=== PATIENT | female | born 1990 | race Hispanic/Latino ===

== ENCOUNTER 2017-08-28 08:54 | Emergency (ER) | payer OTHER, SELFPAY ==
[2017-08-28 10:45] LABS: Absolute Lymphocytes (CBC) 1.4 K/uL (0.7-4.9); Absolute Monocytes 0.5 K/uL (0.1-1.3); Absolute Neutrophil 5.1 K/uL (1.8-8.0); Basophils % 0.5 % (0-1.3); Eosinophils % 4.5 % (0-4.4); Hematocrit 37.4 % (36.0-45.0); Lymphocytes % 18.9 % (15.3-44.8); MCH 30.1 pg (27.0-35.0); MCV 90.6 fL (80-100); Monocytes % 6.7 % (3.3-12.3); RBC Red Blood Cell Count 4.13 M/uL (3.86-4.86)
[2017-08-28 11:00] LABS: Bicarbonate 24 mEq/L (21-31); Glucose Level 79 mg/dL (65-120); Potassium 3.7 mEq/L (3.6-5.0); Sodium Level 134 mEq/L (135-145)
[2017-08-28 11:01] LABS: BUN Blood Urea Nitrogen 8 mg/dL (6-20); Glomerular Filtration Rate > 90 mL/min (=/>90)
--- NOTE | 2017-08-28 12:27 | EDPHYS ---
Physician Documentation [facility] Name: Jaimie Cochran Age: 27 yrs Sex: Female : 1990 Arrival Date: 08/28/2017 Time: 08:58 Bed 14 Private MD: ED Physician Chapo Black HPI: 08/28 10:26 This 27 yrs old Female presents to ER via Ambulatory with complaints of kb Abdominal Pain - Unk Wks Preg. 10:30 The patient presents to the emergency department with abdominal pain, of the left lower kb quadrant, that started yesterday. course: care: none, Leakage of Fluid: none appreciated, Ultrasound: the patient has not had an ultrasound, Risk/complications: no obvious risks or complications are appreciated. Previous pregnancies: in previous pregnancies patient has had. Associated signs and symptoms: Pertinent positives: abdominal pain, Pertinent negatives: chest pain, diarrhea, dysuria, fever, frequency, nausea, ruptured membranes, seizure, shortness of breath, vaginal bleeding, vaginal discharge, vomiting. The patient has not experienced similar symptoms in the past. The patient has not recently seen a physician. 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 - Social history:: Smoking status: Patient uses tobacco products, 4-5 cigarettes/ day. ROS: 10:25 Constitutional: Negative for fever, chills, and weight loss, ENT: Negative for injury, kb pain, and discharge, Neck: Negative for injury, pain, and swelling, Cardiovascular: Negative for chest pain, palpitations, and edema, Respiratory: Negative for shortness of breath, cough, wheezing, and pleuritic chest pain, Back: Negative for injury and pain, : Negative for injury, bleeding, discharge, and swelling, MS/Extremity: Negative for injury and deformity, Skin: Negative for injury, rash, and discoloration, Neuro: Negative for headache, weakness, numbness, tingling, and seizure. 10:25 Abdomen/GI: Positive for abdominal pain, Negative for nausea, vomiting, and diarrhea, constipation, abdominal cramps, abdominal distension, anorexia. Exam: 10:25 Constitutional: This is a well developed, well nourished patient who is awake, alert, kb and in no acute distress. Head/Face: Normocephalic, atraumatic. Chest/axilla: Normal chest wall appearance and motion. Nontender with no deformity. No lesions are appreciated. Cardiovascular: Regular rate and rhythm with a normal S1 and S2. No gallops, murmurs, or rubs. Normal PMI, no JVD. No pulse deficits. Respiratory: Lungs have equal breath sounds bilaterally, clear to auscultation and percussion. No rales, rhonchi or wheezes noted. No increased work of breathing, no retractions or nasal flaring. Back: No spinal tenderness. No costovertebral tenderness. Full range of motion. Skin: Warm, dry with normal turgor. Normal color with no rashes, no lesions, and no evidence of cellulitis. MS/ Extremity: Pulses equal, no cyanosis. Neurovascular intact. Full, normal range of motion. Neuro: Awake and alert, GCS 15, oriented to person, place, time, and situation. Cranial nerves II-XII grossly intact. Motor strength 5/5 in all extremities. Sensory grossly intact. Cerebellar exam normal. Normal gait. 10:25 Abdomen/GI: Inspection: abdomen appears normal, Bowel sounds: normal, in all quadrants, Palpation: mild abdominal tenderness, in the left lower quadrant. Vital Signs: 09:10 BP 99 / 66; Pulse 87; Resp 16; Temp 97.9; Pulse Ox 99% on R/A; Height 5 ft. 5 in. ss (165.10 cm); Pain 5/10; 11:30 BP 107 / 68; Pulse 84; Resp 18; Pulse Ox 99% on R/A; ph 12:57 BP 101 / 62; Pulse 88; Resp 18; Temp 97.2; Pulse Ox 99% on R/A; ph MDM: 10:03 Patient medically screened. kb 10:25 Data reviewed: vital signs, nurses notes. Data interpreted: Pulse oximetry: on room air kb is 99 %. Interpretation: normal. 12:26 Counseling: I had a detailed discussion with the patient and/or guardian regarding: the kb historical points, exam findings, and any diagnostic results supporting the discharge/admit diagnosis, lab results, radiology results, the need for outpatient follow up, an OB/Gyne specialist, to return to the emergency department if symptoms worsen or persist or if there are any questions or concerns that arise at home. 08/28 10:03 Order name: Quantitative Hcg; Complete Time: 11:31 kb 08/28 10:03 Order name: Abo/rh Typing; Complete Time: 11:23 kb 08/28 10:03 Order name: Basic Metabolic Panel; Complete Time: 11:31 kb 08/28 10:03 Order name: CBC with Diff; Complete Time: 10:48 kb 08/28 11:31 Order name: US Transvaginal Ob; Complete Time: 12:43 kb 08/28 10:03 Order name: IV Saline Lock; Complete Time: 10:47 kb 08/28 10:03 Order name: Labs collected and sent; Complete Time: 10:47 kb 08/28 10:03 Order name: NPO; Complete Time: 10:48 kb Administered Medications: No medications were administered Disposition: 15:10 Co-signature as Attending Physician, Chapo Black MD I agree with the assessment and long plan of care. Disposition: 08/28/17 12:26 Discharged to Home. Impression: Unspecified ovarian cysts. - Condition is Stable. - Discharge Instructions: Ovarian Cyst, [id number]. - Medication Reconciliation Form, Thank You Letter, Antibiotic Education, Prescription Opioid Use, Work release form form. - Follow up: Emergency Department; When: As needed; Reason: Worsening of condition. Follow up: Private Physician; When: 2 - 3 days; Reason: Recheck today's complaints, Continuance of care, Re-evaluation by your physician. Signatures: Dispatcher [employer] Roselia Mccloud, TEXTILE COLORIST FORMULATOR-C YUE-Chapo Morrison MD MD cha Smirch, Shelby, RN RN ss Josie Doan RN RN ph
--- NOTE | 2017-08-28 12:27 | ER ---
Nurse's Notes [facility] Name: Jaimie Cochran Age: 27 yrs Sex: Female : 1990 Arrival Date: 08/28/2017 Time: 08:58 Bed 14 Private MD: Diagnosis: Unspecified ovarian cysts Presentation: 08/28 09:11 Presenting complaint: Patient states: LLQ pain that began yesterday morning. Pt reports ss she was seen here in the ER two weeks ago and was told she was . Transition of care: patient was not received from another setting of care. Onset of symptoms was August 27, 2017. Care prior to arrival: None. 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 - Social history:: Smoking status: Patient uses tobacco products, 4-5 cigarettes/ day. Screenin:46 Abuse screen: Denies threats or abuse. Denies injuries from another. Nutritional ph screening: No deficits noted. Tuberculosis screening: No symptoms or risk factors identified. Fall Risk None identified. Assessment: 10:20 General: Appears in no apparent distress. comfortable, Behavior is calm, cooperative, ph appropriate for age, Denies fever, feeling ill. Pain: Complains of pain in left lower quadrant Quality of pain is described as crampy. Neuro: Level of Consciousness is awake, alert, obeys commands, Oriented to person, place, time, situation. Cardiovascular: Capillary refill < 3 seconds Patient's skin is warm and dry. Respiratory: Airway is patent Respiratory effort is even, unlabored, Respiratory pattern is regular, symmetrical. GI: Abdomen is non-distended, Bowel sounds present X 4 quads. Abd is soft and non tender X 4 quads. Reports cramping, Patient currently denies diarrhea, nausea, vomiting. : Reports cramping, in left lower quadrant(s) Denies discharge, vaginal bleeding. Derm: Skin is intact, is healthy with good turgor, Skin is pink, warm \T\ dry. Musculoskeletal: Circulation, motion, and sensation intact. Range of motion: intact in all extremities. 11:30 Reassessment: Patient appears in no apparent distress at this time. Patient and/or ph family updated on plan of care and expected duration. Pain level reassessed. Patient is alert, oriented x 3, equal unlabored respirations, skin warm/dry/pink. 12:55 Reassessment: Patient appears in no apparent distress at this time. Patient and/or ph family updated on plan of care and expected duration. Pain level reassessed. Patient is alert, oriented x 3, equal unlabored respirations, skin warm/dry/pink. Pt discharged home with family. Vital Signs: 09:10 BP 99 / 66; Pulse 87; Resp 16; Temp 97.9; Pulse Ox 99% on R/A; Height 5 ft. 5 in. ss (165.10 cm); Pain 5/10; 11:30 BP 107 / 68; Pulse 84; Resp 18; Pulse Ox 99% on R/A; ph 12:57 BP 101 / 62; Pulse 88; Resp 18; Temp 97.2; Pulse Ox 99% on R/A; ph ED Course: 08:58 Patient arrived in ED. as 09:10 Arm band placed on right wrist. ss 09:12 Triage completed. ss 10:02 Roselia Coleman FNP-C [facility]. kb 10:02 Chapo Black MD is Attending Physician. kb 10:16 Josie Doan, CHAYO is Primary Nurse. ph 10:37 Initial lab(s) drawn, by de, sent to lab. Inserted saline lock: 22 gauge in left mh5 antecubital area, using aseptic technique. Blood collected. 10:38 Patient has correct armband on for positive identification. Placed in gown. Bed in low mh5 position. Side rails up X 1. Adult w/ patient. Warm blanket given. 12:00 Patient taken to ultrasound. via wheelchair. hr 12:08 US Transvaginal Ob In Process Unspecified. EDMS 12:16 Ultrasound completed. Patient moved back from ultrasound. hr 12:58 No provider procedures requiring assistance completed. IV discontinued, intact, ph bleeding controlled, No redness/swelling at site. Pressure dressing applied. Administered Medications: No medications were administered Outcome: 12:26 Discharge ordered by . kb 12:59 Discharged to home ambulatory, with family. ph 12:59 Condition: good 12:59 Discharge instructions given to patient, Instructed on discharge instructions, follow up and referral plans. Demonstrated understanding of instructions, follow-up care. 12:59 Patient left the ED. ph Signatures: Dispatcher [employer] EDNE Roselia Coleman, INSTITUTIONAL RESEARCH DIRECTOR-C INSTITUTIONAL RESEARCH DIRECTOR-Antionette Terry Amelia as Smirch, Shelby, RN RN Josie Doan RN RN Holly Webster [facility]
--- NOTE | 2017-08-28 12:41 | RAD REPORT ---
EXAM DESCRIPTION: US - Transvaginal OB - 08/28/2017 12:07 pm CLINICAL HISTORY: Cramping, pelvic pain. COMPARISON: None. FINDINGS: A single gestational sac is seen within the uterus. Within the sac is a single pole with crown-rump length measuring 19 mm corresponding to 8 weeks 3 days gestational age. Cardiac activity is normal measuring 160 BPM. 28 x 10 mm subchorionic bleed is present along the left aspect of the gestational sac. Both ovaries are normal with normal Doppler blood flow demonstrated. IMPRESSION: Single live early intrauterine gestation as detailed above. Subchorionic bleed along the left aspect of the sac (28 x 10 mm).
== END 2017-08-28 12:59 | disposition home or self-care (01) ==
LOC: ER 08:54
DX: N83.209 Unspecified ovarian cyst, unspecified side (principal); F17.210 Nicotine dependence, cigarettes, uncomplicated
CPT/HCPCS: 36415; 76817; 80048; 84702; 85025; 86900; 86901; 99284

== ENCOUNTER 2017-09-24 20:57 | Emergency (ER) | payer OTHER ==
[2017-09-24] MEDS ORDERED: NA CHLORIDE 0.9% 1,000 ML ONE (22:22)
[2017-09-24 22:35] LABS: Absolute Monocytes 0.7 K/uL (0.1-1.3); Absolute Neutrophil 6.5 K/uL (1.8-8.0); Basophils % 0.5 % (0-1.3); Hematocrit 33.3 % (36.0-45.0); Lymphocytes % 20.7 % (15.3-44.8); MCH 31.3 pg (27.0-35.0); MCV 90.7 fL (80-100); MPV 8.9 fL (7.6-11.3); Monocytes % 7.2 % (3.3-12.3); RBC Red Blood Cell Count 3.67 M/uL (3.86-4.86)
[2017-09-24 22:50] LABS: Bicarbonate 25 mEq/L (21-31); Glucose Level 92 mg/dL (65-120); Potassium 3.8 mEq/L (3.6-5.0); Sodium Level 135 mEq/L (135-145)
[2017-09-24 22:51] LABS: BUN Blood Urea Nitrogen 12 mg/dL (6-20)
--- NOTE | 2017-09-24 23:45 | ER ---
Nurse's Notes [facility] Name: Jaimie Cochran Age: 27 yrs Sex: Female : 1990 Arrival Date: 09/24/2017 Time: 20:58 Bed 13 Private MD: Diagnosis: Dizziness. Vomiting. 1st Trimester Presentation: 09/24 21:55 Presenting complaint: Patient states: "passed out at the job yesterday." Reports nausea aj and vomiting. Evaluated by EMS yesterday. Transition of care: patient was not received from another setting of care. Onset of symptoms was September 23, 2017. Initial Sepsis Screen: Does the patient meet any 2 criteria? No. Patient's initial sepsis screen is negative. Does the patient have a suspected source of infection? No. Patient's initial sepsis screen is negative. Care prior to arrival: None. 21:55 Method Of Arrival: Ambulatory aj 21:55 Acuity: DON 3 aj Triage Assessment: 21:56 General: Appears in no apparent distress. comfortable, Behavior is calm, cooperative, aj appropriate for age. Pain: Denies pain. Neuro: Level of Consciousness is awake, alert, obeys commands, Reports a syncopal episode. Respiratory: Airway is patent Respiratory effort is even, unlabored, Respiratory pattern is regular, symmetrical. GI: Abdomen is flat, Reports nausea. Derm: Skin is intact, is healthy with good turgor, Skin is pink, warm \\T\\ dry. normal. 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 - Social history:: Smoking status: Patient uses tobacco products, smokes one-half pack cigarettes per day. Screenin:01 Abuse screen: Denies threats or abuse. Denies injuries from another. Nutritional bs1 screening: No deficits noted. Tuberculosis screening: No symptoms or risk factors identified. Fall Risk None identified. Assessment: 22:30 General: Appears in no apparent distress. uncomfortable, Behavior is cooperative, flat. bs1 Pain: Denies pain. Neuro: Level of Consciousness is awake, alert, obeys commands, Oriented to person, place, time, situation, Appropriate for age Inspector Of Weights And Measures are equal bilaterally Moves all extremities. Gait is steady, Speech is normal, Facial symmetry appears normal. Neuro: Reports a syncopal episode. Cardiovascular: Denies chest pain, Heart tones S1 S2 present Capillary refill < 3 seconds Patient's skin is warm and dry. Respiratory: Airway is patent Trachea midline Respiratory effort is even, unlabored, Respiratory pattern is regular, symmetrical, Breath sounds are clear bilaterally. GI: Abdomen is round Bowel sounds present X 4 quads. Abd is soft and non tender X 4 quads. Reports nausea, vomiting. : No deficits noted. No signs and/or symptoms were reported regarding the genitourinary system. EENT: No deficits noted. No signs and/or symptoms were reported regarding the EENT system. Derm: Skin is intact, Skin is pink, warm \\T\\ dry. Musculoskeletal: Circulation, motion, and sensation intact. Capillary refill < 3 seconds, Range of motion: intact in all extremities. 09/25 00:00 Reassessment: Patient appears in no apparent distress at this time. Patient and/or bs1 family updated on plan of care and expected duration. Pain level reassessed. Patient is alert, oriented x 3, equal unlabored respirations, skin warm/dry/pink. Patient states feeling better. Vital Signs: 09/24 21:56 BP 107 / 61; Pulse 75; Resp 18; Temp 98.6; Pulse Ox 100% on R/A; Weight 58.97 kg; aj Height 5 ft. 4 in. (162.56 cm); Pain 0/10; 22:25 BP 100 / 61; Pulse 73; Resp 18; Pulse Ox 100% on R/A; mt 23:45 BP 100 / 61; Pulse 65; Resp 16; Temp 98(O); Pulse Ox 99% on R/A; Pain 0/10; bs1 21:56 Body Mass Index 22.31 (58.97 kg, 162.56 cm) ED Course: 20:58 Patient arrived in ED. am2 21:56 Triage completed. aj 21:56 Arm band placed on right wrist. Patient placed in waiting room, Patient notified of wait time. 22:12 Tim Campos MD is Attending Physician. pkl 22:20 Kaitlynn Mann, CHAYO is Primary Nurse. bs1 22:25 Inserted saline lock: 20 gauge in left antecubital area, using aseptic technique. Blood mt collected. 23:01 Patient has correct armband on for positive identification. Placed in gown. Bed in low bs1 position. Call light in reach. Side rails up X 1. Pulse ox on. NIBP on. 23:01 No provider procedures requiring assistance completed. bs1 09/25 00:26 IV discontinued, bleeding controlled, No redness/swelling at site. Pressure dressing bs1 applied. Administered Medications: 09/24 22:32 Not Given (Physician Discretion): NS 0.9% 1000 ml IV at 125 ml/hr continuous bs1 22:32 Drug: NS 0.9% 1000 ml Route: IV; Rate: 1 bolus; Site: left antecubital; bs1 09/25 00:26 Follow up: IV Status: Completed infusion bs1 Outcome: 09/24 23:44 Discharge ordered by . jacques 09/25 00:25 Discharged to home ambulatory. bs1 Condition: stable Discharge instructions given to patient, Instructed on discharge instructions, follow up and referral plans. medication usage, Information given to patient for the [facility] [place] Demonstrated understanding of instructions, follow-up care, medications, Prescriptions given X 1. 00:27 Patient left the ED. bs1 Signatures: Mirela Parker, RN Tim Ambriz MD MD pkl Moreno, Amanda am2 Thompson, Moriah mt Salazar, Brittany, RN RN bs1
--- NOTE | 2017-09-24 23:45 | EDPHYS ---
Physician Documentation [facility] Name: Jaimie Cochran Age: 27 yrs Sex: Female : 1990 Arrival Date: 09/24/2017 Time: 20:58 Bed 13 Private MD: ED Physician Tim Campos HPI: 09/24 22:53 This 27 yrs old Female presents to ER via Ambulatory with complaints of pkl General Weakness, Dizziness, passed out yesterday. 22:53 The patient presents with feeling faint, generalized weakness. Onset: The pkl symptoms/episode began/occurred yesterday. The patient has been recently seen at the [facility] Emergency Department, last month. . Patient is about 8 weeks . Seen twice last month ER. US done shows single intrauterine . No care yet.. 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 - Social history:: Smoking status: Patient uses tobacco products, smokes one-half pack cigarettes per day. ROS: 22:53 Eyes: Negative for injury, pain, redness, and discharge, ENT: Negative for injury, pkl pain, and discharge, Neck: Negative for injury, pain, and swelling, Cardiovascular: Negative for chest pain, palpitations, and edema, Respiratory: Negative for shortness of breath, cough, wheezing, and pleuritic chest pain, Abdomen/GI: Negative for abdominal pain, nausea, vomiting, diarrhea, and constipation, Back: Negative for injury and pain, : Negative for injury, bleeding, discharge, and swelling, MS/Extremity: Negative for injury and deformity, Skin: Negative for injury, rash, and discoloration. 22:53 Neuro: Positive for dizziness, near syncope. Exam: 22:53 Head/Face: Normocephalic, atraumatic. Eyes: Pupils equal round and reactive to light, pkl extra-ocular motions intact. Lids and lashes normal. Conjunctiva and sclera are non-icteric and not injected. Cornea within normal limits. Periorbital areas with no swelling, redness, or edema. ENT: Nares patent. No nasal discharge, no septal abnormalities noted. Tympanic membranes are normal and external auditory canals are clear. Oropharynx with no redness, swelling, or masses, exudates, or evidence of obstruction, uvula midline. Mucous membranes moist. Neck: Trachea midline, no thyromegaly or masses palpated, and no cervical lymphadenopathy. Supple, full range of motion without nuchal rigidity, or vertebral point tenderness. No Meningismus. Chest/axilla: Normal chest wall appearance and motion. Nontender with no deformity. No lesions are appreciated. Cardiovascular: Regular rate and rhythm with a normal S1 and S2. No gallops, murmurs, or rubs. Normal PMI, no JVD. No pulse deficits. Respiratory: Lungs have equal breath sounds bilaterally, clear to auscultation and percussion. No rales, rhonchi or wheezes noted. No increased work of breathing, no retractions or nasal flaring. Abdomen/GI: Soft, non-tender, with normal bowel sounds. No distension or tympany. No guarding or rebound. No evidence of tenderness throughout. Back: No spinal tenderness. No costovertebral tenderness. Full range of motion. Skin: Warm, dry with normal turgor. Normal color with no rashes, no lesions, and no evidence of cellulitis. MS/ Extremity: Pulses equal, no cyanosis. Neurovascular intact. Full, normal range of motion. Neuro: Awake and alert, GCS 15, oriented to person, place, time, and situation. Cranial nerves II-XII grossly intact. Motor strength 5/5 in all extremities. Sensory grossly intact. Cerebellar exam normal. Normal gait. Vital Signs: 21:56 BP 107 / 61; Pulse 75; Resp 18; Temp 98.6; Pulse Ox 100% on R/A; Weight 58.97 kg; aj Height 5 ft. 4 in. (162.56 cm); Pain 0/10; 22:25 BP 100 / 61; Pulse 73; Resp 18; Pulse Ox 100% on R/A; mt 23:45 BP 100 / 61; Pulse 65; Resp 16; Temp 98(O); Pulse Ox 99% on R/A; Pain 0/10; bs1 21:56 Body Mass Index 22.31 (58.97 kg, 162.56 cm) aj MDM: 22:12 Patient medically screened. pkl 23:42 Data reviewed: vital signs, nurses notes, lab test result(s). pkl 04/24 22:17 Order name: CBC with Diff; Complete Time: 23:11 pkl 09/24 22:17 Order name: Chem 7; Complete Time: :31 pkl 09/24 22:17 Order name: Quantitative Hcg; Complete Time: : pkl Administered Medications: 22:32 Not Given (Physician Discretion): NS 0.9% 1000 ml IV at 125 ml/hr continuous bs1 22:32 Drug: NS 0.9% 1000 ml Route: IV; Rate: 1 bolus; Site: left antecubital; bs1 09/25 00:26 Follow up: IV Status: Completed infusion bs1 Disposition: 09/24/17 23:44 Discharged to Home. Impression: Dizziness. Vomiting. 1st Trimester . - Condition is Stable. - Prescriptions for Zofran 4 mg Oral Tablet - take 1 tablet by ORAL route every 12 hours As needed; 10 tablet. - Work release form, Medication Reconciliation Form, Thank You Letter, Antibiotic Education, Prescription Opioid Use form. - Follow up: Private Physician; When: 1 - 2 days; Reason: Re-evaluation by your physician. - Problem is new. - Symptoms have improved. Signatures: Dispatcher [employer] Mirela Link RN Tim Ambriz MD MD pkl Salazar, Brittany RN RN bs1 Corrections: (The following items were deleted from the chart) 09/24 22:26 22:18 Transvaginal Ob+US.RAD.BRZ ordered. EDMS EDMS : 22:18 RH TYPING+BB.LAB.BRZ ordered. EDMS EDMS
== END 2017-09-25 00:27 | disposition home or self-care (01) ==
LOC: ER 20:57
DX: O26.891 Other specified pregnancy related conditions, first trimester (principal); R42 Dizziness and giddiness; Z3A.01 Less than 8 weeks gestation of pregnancy; R53.1 Weakness
CPT/HCPCS: 36415; 80048; 84702; 85025; 96360; 96361; 99284; J7030